=== PATIENT | female | born 1990 | race African-American/Black ===

== ENCOUNTER 2019-07-25 22:34 | Emergency (ER) | payer SELFPAY, OTHER ==
[2019-07-26 00:09] LABS: Absolute Lymphocytes (CBC) 2.4 K/uL (0.7-4.9); Basophils % 0.5 % (0-1.3); Hematocrit 36.5 % (36.0-45.0); Lymphocytes % 19.2 % (15.3-44.8); MPV 9.9 fL (7.6-11.3)
[2019-07-26 00:22] LABS: BUN Blood Urea Nitrogen 8 mg/dL (7-18); Bicarbonate 26 mmol/L (21-32); Glucose Level 97 mg/dL (74-106); Potassium 3.4 mmol/L (3.5-5.1); Sodium Level 143 mmol/L (136-145)
--- NOTE | 2019-07-26 00:28 | ER ---
Nurse's Notes [facility] Name: Bree Barton Age: 29 yrs Sex: Female : 1990 Arrival Date: 07/25/2019 Time: 22:35 Bed 19 Private MD: Diagnosis: Viral infection, unspecified;Shortness of breath Presentation: 07/24 22:41 Chief complaint: Patient states: Dizziness for 2 weeks. Slight cough with body aches ll1 for 2 weeks. Noticed SOB today. Feels hot at night, no known fever. Coronavirus screen: Surgical mask placed on patient. Patient moved to private room, placed in contact and droplet isolation with eye protection until further assessment. Patient reports a cough. Patient reports shortness of breath or difficulty breathing. Patient denies measured and/or subjective temperature greater than 100.4F prior to today's visit. Patient denies travel on a cruise ship or to a country the [facility] currently lists as an affected area. Patient denies contact with known and/or suspected case of COVID-19. Ebola Screen: Patient denies travel to an Ebola-affected area in the 21 days before illness onset. Initial Sepsis Screen: Does the patient meet any 2 criteria? No. Patient's initial sepsis screen is negative. Does the patient have a suspected source of infection? No. Patient's initial sepsis screen is negative. Risk Assessment: Do you want to hurt yourself or someone else? Patient reports no desire to harm self or others. Onset of symptoms was July 11, 2019. 22:41 Method Of Arrival: Ambulatory ll1 22:41 Acuity: TOMÁS 3 ll1 Historical: - Allergies: 22:43 No Known Allergies; ll1 - PMHx: 22:43 None; ll1 - PSHx: 22:43 None; ll1 - Immunization history:: Adult Immunizations unknown. - Social history:: Smoking status: Patient denies any tobacco usage or history of. Patient/guardian denies using alcohol, street drugs, tobacco products. Screenin/01 00:23 Abuse screen: Denies threats or abuse. Nutritional screening: No deficits noted. ea Tuberculosis screening: No symptoms or risk factors identified. Fall Risk None identified. Assessment: 07/24 23:41 General: Appears in no apparent distress. Behavior is appropriate for age. Pain: Denies ea pain. Neuro: Level of Consciousness is awake, alert, obeys commands, Oriented to person, place, time, situation. Cardiovascular: Patient's skin is warm and dry. Respiratory: Airway is patent Respiratory effort is even, unlabored, Respiratory pattern is regular, symmetrical. Derm: Skin is pink, warm \T\ dry. Musculoskeletal: Circulation, motion, and sensation intact. 07/25 00:46 Reassessment: Patient and/or family updated on plan of care and expected duration. Pain ea level reassessed. Patient is alert, oriented x 3, equal unlabored respirations, skin warm/dry/pink. Discharge instruction given to patient, verbalized the understanding of instruction. Vital Signs: 07/24 22:41 BP 160 / 89; Pulse 82; Resp 17; Temp 99.5; Pulse Ox 99% ; Pain 6/10; ll1 07/25 00:26 BP 147 / 63; Pulse 88; Resp 18; Pulse Ox 98% on R/A; ea ED Course: 07/24 22:35 Patient arrived in ED. cl3 22:43 Triage completed. ll1 22:43 Arm band placed on Patient placed in an exam room, on a stretcher. ll1 23:17 Delfino Newton MD is Attending Physician. kdr 23:24 Tori Weeks RN is Primary Nurse. ea 23:43 Inserted saline lock: 22 gauge in left antecubital area, using aseptic technique. Blood ea collected. 23:53 CXR XRAY In Process Unspecified. EDMS 07/25 00:23 Patient has correct armband on for positive identification. Bed in low position. Call ea light in reach. 00:40 IV discontinued, intact, bleeding controlled, No redness/swelling at site. Pressure ea dressing applied. Administered Medications: 00:45 Drug: Ibuprofen 600 mg Route: PO; ea 00:46 Follow up: Response: Medication administered at discharge. ea 00:45 Drug: Tessalon Perle 200 mg Route: PO; ea 00:45 Follow up: Response: Medication administered at discharge. ea Outcome: 00:28 Discharge ordered by . kdr 00:47 Discharged to home ambulatory. ea 00:47 Condition: stable 00:47 Discharge instructions given to patient, Instructed on discharge instructions, follow up and referral plans. medication usage, Demonstrated understanding of instructions, follow-up care, medications, Prescriptions given X 2. 00:48 Patient left the ED. ea Addendum: 07/27/2019 18:25 Addendum: Other pt notified via telephone of negative COVID result, pt states she never i w had respiratory symptoms, only that she had leg cramps, has been symptom free for 24 hours. Signatures: Dispatcher [employer] EDMS Delfino Newton MD MD kdr Williams, Irene, RN RN iw Tori Weeks RN RN ea Lewis, Charde cl3 Rudy Mcrae RN RN ll1 Corrections: (The following items were deleted from the chart) 18:28 18:25 Addendum: Other pt notified via telephone of negative COVID result, pt states she iw never had respiratory symptoms, she had leg cramps iw
--- NOTE | 2019-07-26 00:28 | EDPHYS ---
Physician Documentation [facility] Name: Bree Barton Age: 29 yrs Sex: Female : 1990 Arrival Date: 07/25/2019 Time: 22:35 Bed 19 Private MD: ED Physician Delfino Newton HPI: 07/24 23:26 This 29 yrs old Black Female presents to ER via Ambulatory with complaints of Shortness kdr Of Breath, Dizziness. 23:26 The patient has shortness of breath at rest, with light activity. Onset: The kdr symptoms/episode began/occurred gradually, 2 week(s) ago. Duration: The symptoms are continuous, and are unchanged since they started. The patient's shortness of breath is aggravated by exertion, is alleviated by nothing. Associated signs and symptoms: Pertinent positives: non-productive cough. Severity of symptoms: At their worst the symptoms were mild in the emergency department the symptoms are unchanged. The patient has not experienced similar symptoms in the past. The patient has not recently seen a physician. Historical: - Allergies: 22:43 No Known Allergies; ll1 - PMHx: 22:43 None; ll1 - PSHx: 22:43 None; ll1 - Immunization history:: Adult Immunizations unknown. - Social history:: Smoking status: Patient denies any tobacco usage or history of. Patient/guardian denies using alcohol, street drugs, tobacco products. ROS: 23:26 Constitutional: Negative for objective fever, chills, and weight loss, Eyes: Negative kdr for injury, pain, redness, and discharge, Neck: Negative for injury, pain, and swelling, Cardiovascular: Negative for chest pain, palpitations, and edema, Abdomen/GI: Negative for abdominal pain, nausea, vomiting, diarrhea, and constipation, Back: Negative for injury and pain, : Negative for injury, bleeding, discharge, and swelling, MS/Extremity: Negative for injury and deformity, Skin: Negative for injury, rash, and discoloration, Neuro: Negative for headache, weakness, numbness, tingling, and seizure activity. Psych: Negative for depression, anxiety, suicide ideation, homicidal ideation, and hallucinations, Allergy/Immunology: Negative for hives, rash, and allergies, Endocrine: Negative for neck swelling, polydipsia, polyuria, polyphagia, and marked weight changes, Hematologic/Lymphatic: Negative for swollen nodes, abnormal bleeding, and unusual bruising. 23:26 Respiratory: Positive for cough, with no reported sputum, shortness of breath, Negative for hemoptysis, orthopnea, sputum production, wheezing. Exam: 23:26 Constitutional: This is a well developed, well nourished patient who is awake, alert, kdr and in no acute distress. Head/Face: Normocephalic, atraumatic. Eyes: Pupils equal round and reactive to light, extra-ocular motions intact. Lids and lashes normal. Conjunctiva and sclera are non-icteric and not injected. Cornea within normal limits. Periorbital areas with no swelling, redness, or edema. Neck: Trachea midline, no thyromegaly or masses palpated, and no cervical lymphadenopathy. Supple, full range of motion without nuchal rigidity, or vertebral point tenderness. No Meningismus. Chest/axilla: Normal chest wall appearance and motion. Nontender with no deformity. No lesions are appreciated. Cardiovascular: Regular rate and rhythm with a normal S1 and S2. No gallops, murmurs, or rubs. Normal PMI, no JVD. No pulse deficits. Respiratory: Lungs have equal breath sounds bilaterally, clear to auscultation and percussion. No rales, rhonchi or wheezes noted. No increased work of breathing, no retractions or nasal flaring. Abdomen/GI: Soft, non-tender, with normal bowel sounds. No distension or tympany. No guarding or rebound. No evidence of tenderness throughout. Back: No spinal tenderness. No costovertebral tenderness. Full range of motion. Skin: Warm, dry with normal turgor. Normal color with no rashes, no lesions, and no evidence of cellulitis. MS/ Extremity: Pulses equal, no cyanosis. Neurovascular intact. Full, normal range of motion. Neuro: Awake and alert, GCS 15, oriented to person, place, time, and situation. Cranial nerves II-XII grossly intact. Motor strength 5/5 in all extremities. Sensory grossly intact. Cerebellar exam normal. Normal gait. Psych: Awake, alert, with orientation to person, place and time. Behavior, mood, and affect are within normal limits. Vital Signs: 22:41 BP 160 / 89; Pulse 82; Resp 17; Temp 99.5; Pulse Ox 99% ; Pain 6/10; ll1 07/25 00:26 BP 147 / 63; Pulse 88; Resp 18; Pulse Ox 98% on R/A; ea MDM: 00:28 Patient medically screened. kdr 03:54 Data reviewed: vital signs, nurses notes. Counseling: I had a detailed discussion with kdr the patient and/or guardian regarding: the historical points, exam findings, and any diagnostic results supporting the discharge/admit diagnosis, lab results, radiology results, the need for outpatient follow up. 07/24 23:26 Order name: CBC with Diff; Complete Time: 00:25 kdr 07/24 23:26 Order name: Chem 7; Complete Time: 00:25 kdr 07/24 23:26 Order name: COVID-19 kdr 07/24 23:26 Order name: CXR XRAY kdr Administered Medications: 00:45 Drug: Ibuprofen 600 mg Route: PO; ea 00:46 Follow up: Response: Medication administered at discharge. ea 00:45 Drug: Tessalon Perle 200 mg Route: PO; ea 00:45 Follow up: Response: Medication administered at discharge. ea Disposition: 07/26/19 00:28 Discharged to Home. Impression: Viral infection, unspecified, Shortness of breath. - Condition is Stable. - Discharge Instructions: Shortness of Breath, Gyvm-sj-Pxor, Cough, Adult, Opej-oa-Joeu, Viral Respiratory Infection, [id number], COVID-19. - Prescriptions for Ibuprofen 600 mg Oral Tablet - take 1 tablet by ORAL route every 6 hours As needed take with food; 30 tablet. Tessalon Perles 100 mg Oral Capsule - take 1 capsule by ORAL route every 8 hours As needed; 15 capsule. - Medication Reconciliation Form, Thank You Letter, Antibiotic Education, Prescription Opioid Use form. - Follow up: Private Physician; When: 2 - 3 days; Reason: If symptoms return, Further diagnostic work-up, Recheck today's complaints, Continuance of care, Re-evaluation by your physician. - Problem is an ongoing problem. - Symptoms are unchanged. Signatures: Dispatcher [employer] EDMS Delfino Newton MD MD kdr Antunez, Elena, RN RN ea Lewis, Lynsay, RN RN ll1 Corrections: (The following items were deleted from the chart) 00:48 00:28 07/26/2019 00:28 Discharged to Home. Impression: Viral infection, unspecified; ea Shortness of breath. Condition is Stable. Forms are Medication Reconciliation Form, Thank You Letter, Antibiotic Education, Prescription Opioid Use. Follow up: Private Physician; When: 2 - 3 days; Reason: If symptoms return, Further diagnostic work-up, Recheck today's complaints, Continuance of care, Re-evaluation by your physician. Problem is an ongoing problem. Symptoms are unchanged. kdr
[2019-07-26] MEDS ORDERED: IBUPROFEN 200 MG TAB PO ONE (00:39)
[2019-07-26] MEDS ORDERED: BENZONATATE 100 MG CAP PO ONE (00:39)
[2019-07-26] MEDS ORDERED: IBUPROFEN 400 MG TAB ONE (00:40)
[2019-07-26 01:07] VITALS: TEMP 99.5
[2019-07-26 01:08] VITALS: BP 147/63; O2SAT 98
--- NOTE | 2019-07-26 07:22 | RAD REPORT ---
EXAM DESCRIPTION: RAD - Chest Single View - 07/25/2019 11:52 pm CLINICAL HISTORY: COUGH, weakness, body ache COMPARISON: Portable July 2007 TECHNIQUE: AP portable chest image was obtained 07/25/2019 11:52 pm . FINDINGS: Lungs are clear. Heart and vasculature are normal. No measurable pleural effusion and no p neumothorax. No acute bony abnormality seen. No acute aortic findings suspected. IMPRESSION: No acute cardiopulmonary process. No significant changes since the prior study.
== END 2019-07-26 00:48 | disposition home or self-care (01) ==
LOC: ER 22:34
DX: B34.9 Viral infection, unspecified (principal); Z20.828 Contact with and (suspected) exposure to other viral communicable diseases
CPT/HCPCS: 36415; 71045; 80048; 85025; 99284; U0001

== ENCOUNTER 2020-04-17 07:38 | Emergency (ER) | payer SELFPAY ==
--- OUTSIDE RECORDS SUMMARY | 2020-04-17 07:40 | XMS REPORT | Continuity of Care Document ---
:1990 Author Organization [facility] t Address 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 Medications Ordered Filled Start Stop Current Ordering Indication Dosage Frequency Signature Comments Components Source Medication Medication Date Date Medication? Clinician (SIG) Name Name Zamzam Wyman 2018-0 Yes Carlos Take 1/[address] [facility] 5-01 Lu tab QD x 1 [facility] - 00:00: week then [facility] 00 take 1 tab l [facility]D Outpati ent Clinics Procedures This patient has no known procedures. Encounters Start End Encounter Admission Attending Care Care Encounter Source Date/Time Date/Time Type Type Clinicians Facility Department ID 2018-07-31 2018-07-31 Outpatient Elliot Zaratet [id number] [facility] 11:29:00 11:29:00 [facility] Medicine Outpat[facility] Clinics 2018-07-25 2018-07-25 Outpatient Elliot [place] [id number] [facility] 09:00:00 09:00:00 [facility] Medicine Out[facility] Clinics Results This patient has no known results.
[2020-04-17] MEDS ORDERED: MECLIZINE HCL 12.5 MG TAB ONE (08:13)
[2020-04-17] MEDS ORDERED: IBUPROFEN 400 MG TAB ONE (08:14)
[2020-04-17] MEDS ORDERED: IBUPROFEN 200 MG TAB PO ONE (08:14)
--- NOTE | 2020-04-17 08:32 | RAD REPORT ---
EXAM DESCRIPTION: CT - Head Brain Wo Cont - 04/17/2020 8:08 am CLINICAL HISTORY: DIZZINESS Headache, drowsiness COMPARISON: No comparisons TECHNIQUE: All CT scans are performed using dose optimization technique as appropriate and may inclu de automated exposure control or mA/KV adjustment according to patient size. FINDINGS: No intracranial hemorrhage, hydrocephalus or extra-axial fluid collection.No areas of brai n edema or evidence of midline shift. The paranasal sinuses and mastoids are clear. The calvarium is intact. IMPRESSION: No acute intracranial abnormality.
--- NOTE | 2020-04-17 08:58 | ER ---
Nurse's Notes [facility] Name: Bree Barton Age: 30 yrs Sex: Female : 1990 Arrival Date: 04/17/2020 Time: 07:39 Bed 7 Private MD: Diagnosis: Dizziness and giddiness Presentation: 04/17 07:47 Chief complaint: Patient states: dizziness and inability to take a deep breath started sv yesterday morning. Pt also reported a headache that started yesterday afternoon as well but is gone at this time. Coronavirus screen: Client denies travel out of the [place] in the last 14 days. At this time, the client does not indicate any symptoms associated with coronavirus-19. Ebola Screen: No symptoms or risks identified at this time. Risk Assessment: Do you want to hurt yourself or someone else? Patient reports no desire to harm self or others. Onset of symptoms was April 16, 2020. 07:47 Method Of Arrival: Wheelchair sv 07:47 Acuity: TOMÁS 3 sv Historical: - Allergies: 07:50 No Known Allergies; sv - PMHx: 07:50 Hypertension; sv - PSHx: 07:50 None; sv - Immunization history:: Adult Immunizations up to date. - Social history:: Smoking status: Patient denies any tobacco usage or history of. Patient uses alcohol, but reports only rare drinking. Screenin:50 Abuse screen: Denies threats or abuse. Nutritional screening: No deficits noted. tw2 Tuberculosis screening: No symptoms or risk factors identified. Fall Risk None identified. Assessment: 07:56 Reassessment: provider at bedside. tw2 08:00 General: Appears in no apparent distress. obese, well groomed, Behavior is calm, tw2 cooperative, appropriate for age. Pain: Complains of pain in face. Neuro: Reports dizziness. Cardiovascular: Patient's skin is warm and dry. Respiratory: Airway is patent Respiratory effort is even, unlabored, Respiratory pattern is regular, symmetrical. GI: No signs and/or symptoms were reported involving the gastrointestinal system. Abdomen is round non-distended, obese. : No signs and/or symptoms were reported regarding the genitourinary system. EENT: No signs and/or symptoms were reported regarding the EENT system. Derm: No signs and/or symptoms reported regarding the dermatologic system. Musculoskeletal: Circulation, motion, and sensation intact. Range of motion: intact in all extremities. 09:03 Reassessment: Patient appears in no apparent distress at this time. No changes from tw2 previously documented assessment. Patient and/or family updated on plan of care and expected duration. Pain level reassessed. Patient is alert, oriented x 3, equal unlabored respirations, skin warm/dry/pink. Vital Signs: 07:47 Weight 112.49 kg; Height 5 ft. 8 in. (172.72 cm); Pain 0/10; sv 07:49 BP 126 / 49; Pulse 78; Resp 18; Pulse Ox 96% on R/A; tw2 08:13 Temp 97.9(TE); tw2 09:02 BP 138 / 78; Pulse 65; Resp 17; Pulse Ox 97% on R/A; tw2 07:47 Body Mass Index 37.71 (112.49 kg, 172.72 cm) sv ED Course: 07:39 Patient arrived in ED. as 07:42 Yoel Daniels MD is Attending Physician. tw4 07:42 Bed in low position. Call light in reach. Pulse ox on. NIBP on. tw2 07:49 Darling Taylor RN is Primary Nurse. tw2 07:50 Triage completed. sv 07:50 Arm band placed on. sv 08:07 CT completed. Patient tolerated procedure well. Patient moved to CT via wheelchair. Patient moved back from CT. 09:03 No provider procedures requiring assistance completed. Patient did not have IV access tw2 during this emergency room visit. Administered Medications: 08:02 Drug: Meclizine 25 mg Route: PO; tw2 09:04 Follow up: Response: No adverse reaction tw2 08:03 Drug: Motrin 800 mg Route: PO; tw2 09:04 Follow up: Response: No adverse reaction tw2 Outcome: 08:57 Discharge ordered by . tw4 09:03 Discharged to home ambulatory. tw2 09:03 Condition: stable 09:03 Discharge instructions given to patient, Instructed on discharge instructions, follow up and referral plans. no drinking with medication, no driving heavy equipment, medication usage, Demonstrated understanding of instructions, follow-up care, medications, Prescriptions given X 2. 09:04 Patient left the ED. tw2 Signatures: Yennifer Sharma RN RN sv Onofre, Julissa Brian Tara, RN RN tw2 Yoel Daniels MD MD tw4
--- NOTE | 2020-04-17 08:58 | EDPHYS ---
Physician Documentation [facility] Name: Bree Barton Age: 30 yrs Sex: Female : 1990 Arrival Date: 04/17/2020 Time: 07:39 Bed 7 Private MD: ED Physician Yoel Daniels HPI: 04/17 08:27 This 30 yrs old Black Female presents to ER via Wheelchair with complaints of Dizziness.tw4 08:27 The patient presents with dizziness, lightheadedness. Onset: The symptoms/episode tw4 began/occurred today. Context: occurred at home, occurred while the patient was just prior to the episode the patient experienced no apparent symptoms. Modifying factors: The symptoms are alleviated by nothing, the symptoms are aggravated by nothing. Severity of symptoms: At their worst the symptoms were moderate in the emergency department the symptoms are unchanged. The patient has not experienced similar symptoms in the past. Historical: - Allergies: 07:50 No Known Allergies; sv - PMHx: 07:50 Hypertension; sv - PSHx: 07:50 None; sv - Immunization history:: Adult Immunizations up to date. - Social history:: Smoking status: Patient denies any tobacco usage or history of. Patient uses alcohol, but reports only rare drinking. ROS: 08:27 Constitutional: Negative for fever, chills, and weight loss, Eyes: Negative for injury, tw4 pain, redness, and discharge, Cardiovascular: Negative for chest pain, palpitations, and edema, Respiratory: Negative for shortness of breath, cough, wheezing, and pleuritic chest pain, Abdomen/GI: Negative for abdominal pain, nausea, vomiting, diarrhea, and constipation, Back: Negative for injury and pain, MS/Extremity: Negative for injury and deformity, Skin: Negative for injury, rash, and discoloration, Neuro: Negative for headache, weakness, numbness, tingling, and seizure. Exam: 08:28 Constitutional: This is a well developed, well nourished patient who is awake, alert, tw4 and in no acute distress. Head/Face: Normocephalic, atraumatic. Neck: Trachea midline, no thyromegaly or masses palpated, and no cervical lymphadenopathy. Supple, full range of motion without nuchal rigidity, or vertebral point tenderness. No Meningismus. Chest/axilla: Normal chest wall appearance and motion. Nontender with no deformity. No lesions are appreciated. Cardiovascular: Regular rate and rhythm with a normal S1 and S2. No gallops, murmurs, or rubs. Normal PMI, no JVD. No pulse deficits. Respiratory: Lungs have equal breath sounds bilaterally, clear to auscultation and percussion. No rales, rhonchi or wheezes noted. No increased work of breathing, no retractions or nasal flaring. Abdomen/GI: Soft, non-tender, with normal bowel sounds. No distension or tympany. No guarding or rebound. No evidence of tenderness throughout. Back: No spinal tenderness. No costovertebral tenderness. Full range of motion. Skin: Warm, dry with normal turgor. Normal color with no rashes, no lesions, and no evidence of cellulitis. MS/ Extremity: Pulses equal, no cyanosis. Neurovascular intact. Full, normal range of motion. Neuro: Awake and alert, GCS 15, oriented to person, place, time, and situation. Cranial nerves II-XII grossly intact. Motor strength 5/5 in all extremities. Sensory grossly intact. Cerebellar exam normal. Normal gait. Vital Signs: 07:47 Weight 112.49 kg; Height 5 ft. 8 in. (172.72 cm); Pain 0/10; sv 07:49 BP 126 / 49; Pulse 78; Resp 18; Pulse Ox 96% on R/A; tw2 08:13 Temp 97.9(TE); tw2 09:02 BP 138 / 78; Pulse 65; Resp 17; Pulse Ox 97% on R/A; tw2 07:47 Body Mass Index 37.71 (112.49 kg, 172.72 cm) sv MDM: 07:42 Patient medically screened. 04/17 07:57 Order name: CT Head Brain wo Cont 04/17 08:42 Order name: CT EDMS Administered Medications: 08:02 Drug: Meclizine 25 mg Route: PO; 09:04 Follow up: Response: No adverse reaction 2 08:03 Drug: Motrin 800 mg Route: PO; tw 09:04 Follow up: Response: No adverse reaction tw2 Disposition: 04/17/20 08:57 Discharged to Home. Impression: Dizziness and giddiness. - Condition is Stable. - Discharge Instructions: Dizziness. - Prescriptions for Meclizine 25 mg Oral Tablet - take 1 tablet by ORAL route every 8 hours As needed; 30 tablet. Fiorinal 50- 325-40 mg Oral Capsule - take 1 capsule by ORAL route every 4 hours As needed - not to exceed 6 capsules per day; 20 capsule. - Work release form, Medication Reconciliation Form, Thank You Letter, Antibiotic Education, Prescription Opioid Use form. - Follow up: Private Physician; When: Upon discharge from the Emergency Department; Reason: Recheck today's complaints, Continuance of care, Re-evaluation by your physician. - Problem is new. - Symptoms have improved. Signatures: Dispatcher [employer] EDYennifer Khalil RN RN sv Darling Taylor RN RN tw2 Yoel Daniels MD MD tw4 Corrections: (The following items were deleted from the chart) 09:04 08:57 04/17/2020 08:57 Discharged to Home. Impression: Dizziness and giddiness. tw2 Condition is Stable. Forms are Work release form, Medication Reconciliation Form, Thank You Letter, Antibiotic Education, Prescription Opioid Use. Follow up: Private Physician; When: Upon discharge from the Emergency Department; Reason: Recheck today's complaints, Continuance of care, Re-evaluation by your physician. Problem is new. Symptoms have improved. tw4
[2020-04-17 09:11] VITALS: TEMP 97.9
[2020-04-17 09:13] VITALS: BP 138/78; O2SAT 97
== END 2020-04-17 09:04 | disposition home or self-care (01) ==
LOC: ER 07:38
DX: R42 Dizziness and giddiness (principal); I10 Essential (primary) hypertension
CPT/HCPCS: 70450; 99284

== ENCOUNTER 2020-05-19 17:57 | Emergency (ER) | payer SELFPAY ==
--- OUTSIDE RECORDS SUMMARY | 2020-05-19 18:00 | XMS REPORT | Continuity of Care Document ---
:1990 Author Organization [facility] t Address [address] [place] [address] Care Team Providers Name Role Phone Unavailable [...] ID 2018-07-31 2018-07-31 Outpatient Elliot Zaratet [id number] [facility] 11:29:00 11:29:[address] [facility] l Medicine Outpati ent Clinics 2018-07-25 2018-07-25 Outpatient Elliot [place] [id number] [facility] 09:00:00 09:00:[address] [facility] l Medicine Outpati ent Clinics Results This patient has no known results.
[2020-05-19 20:27] LABS: Absolute Lymphocytes (CBC) 2.8 K/uL (0.7-4.9); Basophils % 0.6 % (0-1.3); Hematocrit 38.4 % (36.0-45.0); Lymphocytes % 18.9 % (15.3-44.8); MPV 9.6 fL (7.6-11.3); RBC Red Blood Cell Count 5.31 M/uL (3.86-4.86)
[2020-05-19 20:28] LABS: Protime INR 0.97
[2020-05-19 20:46] LABS: ALT/SGPT 25 U/L (12-78); AST/SGOT 16 U/L (15-37); Albumin 3.9 g/dL (3.4-5.0); Alkaline Phosphatase 97 U/L (45-117); BUN Blood Urea Nitrogen 6 mg/dL (7-18); Bicarbonate 27 mmol/L (21-32); Bilirubin Direct 0.1 mg/dL (0-0.2); Bilirubin Total 0.6 mg/dL (0.2-1.0); Glucose Level 86 mg/dL (74-106); Magnesium 2.5 mg/dL (1.8-2.4); NT PRO-BNP 91 pg/mL (<125); Potassium 3.3 mmol/L (3.5-5.1); Protein, Total 8.6 g/dL (6.4-8.2); Sodium Level 141 mmol/L (136-145); Troponin (Emerg Dept Use Only) < 0.02 ng/mL (0.0-0.045)
[2020-05-19 20:48] LABS: Urine Blood NEGATIVE (NEG); Urine Glucose NEGATIVE (NEG); Urine Protein NEGATIVE (NEG); Urine Specific Gravity 1.025 (1.005-1.030); Urine pH 6.5 (5.0-7.0)
[2020-05-19 20:59] LABS: Barbiturates POSITIVE (NEGATIVE); Benzodiazepines NEGATIVE (NEGATIVE); Cocaine NEGATIVE (NEGATIVE); METHAMPHETAM NEGATIVE (NEGATIVE); Methadone NEGATIVE (NEGATIVE); Opiates NEGATIVE (NEGATIVE); Phencyclidine NEGATIVE (NEGATIVE); THC Cannibis NEGATIVE (NEGATIVE)
--- NOTE | 2020-05-19 21:00 | RAD REPORT ---
EXAM DESCRIPTION: RAD - Chest Single View - 05/19/2020 8:22 pm CLINICAL HISTORY: CHEST PAIN COMPARISON: Portable June 2019 TECHNIQUE: AP portable chest image was obtained 05/19/2020 8:22 pm . FINDINGS: Lungs are clear. Heart and vasculature are normal. No measurable pleural effusion and no p neumothorax. No acute bony abnormality seen. No acute aortic findings suspected. IMPRESSION: No acute cardiopulmonary process. No significant change from comparison study.
--- NOTE | 2020-05-19 23:11 | ER ---
Nurse's Notes [facility] Name: Bree Barton Age: 30 yrs Sex: Female : 1990 Arrival Date: 05/19/2020 Time: 17:58 Bed 17 Private MD: Diagnosis: Other chest pain Presentation: 05/19 18:06 Chief complaint: Patient states: CP off/on for 2 weeks. No fever or cough. Dizzy at ll1 times. Pain radiates into both arms and back at times. Coronavirus screen: Client denies travel out of the [place] in the last 14 days. At this time, the client does not indicate any symptoms associated with coronavirus-19. Ebola Screen: Patient denies travel to an Ebola-affected area in the 21 days before illness onset. Initial Sepsis Screen: Does the patient meet any 2 criteria? No. Patient's initial sepsis screen is negative. Does the patient have a suspected source of infection? No. Patient's initial sepsis screen is negative. Risk Assessment: Do you want to hurt yourself or someone else? Patient reports no desire to harm self or others. Onset of symptoms was May 05, 2020. 18:06 Method Of Arrival: Ambulatory ll1 18:06 Acuity: TOMÁS 3 ll1 Historical: - Allergies: 18:06 No Known Allergies; ll1 - PMHx: 18:06 Hypertension; ll1 - PSHx: 18:06 None; ll1 - Immunization history:: Flu vaccine is not up to date. - Social history:: Smoking status: Patient denies any tobacco usage or history of. Screenin:12 Abuse screen: Denies threats or abuse. Nutritional screening: No deficits noted. vg1 Tuberculosis screening: No symptoms or risk factors identified. Fall Risk None identified. Assessment: 19:10 General: Appears in no apparent distress. comfortable, Behavior is calm, cooperative. vg1 Pain: Denies pain. Complains of pain in chest Pain radiates to back Pain currently is 0 out of 10 on a pain scale. at worst was 10 out of 10 on a pain scale. Quality of pain is described as sharp. Neuro: Level of Consciousness is awake, alert, obeys commands, Oriented to person, place, time, situation. Neuro: Reports dizziness. Cardiovascular: Heart tones S1 S2. Respiratory: Airway is patent Respiratory effort is even, unlabored, Breath sounds are clear bilaterally. GI: Patient currently denies diarrhea, nausea, vomiting. : No signs and/or symptoms were reported regarding the genitourinary system. EENT: No signs and/or symptoms were reported regarding the EENT system. Derm: Skin is intact, is healthy with good turgor. Musculoskeletal: Circulation, motion, and sensation intact. 22:34 Reassessment: Patient appears in no apparent distress at this time. No changes from vg1 previously documented assessment. Patient and/or family updated on plan of care and expected duration. Pain level reassessed. Patient is alert, oriented x 3, equal unlabored respirations, skin warm/dry/pink. Patient denies pain at this time. 23:24 Reassessment: Patient appears in no apparent distress at this time. No changes from vg1 previously documented assessment. Vital Signs: 18:06 BP 148 / 80; Pulse 65; Resp 16; Temp 98.3; Pulse Ox 99% ; Weight 108.86 kg; Height 5 ll1 ft. 8 in. (172.72 cm); Pain 10/10; 19:12 BP 140 / 71; Pulse 75; Resp 16; Pulse Ox 100% on R/A; vg1 20:00 BP 138 / 66; Pulse 64; Resp 22; Pulse Ox 100% on R/A; vg1 21:00 BP 123 / 54; Pulse 65; Resp 16; Pulse Ox 100% on R/A; vg1 22:00 BP 123 / 62; Pulse 60; Resp 22; Pulse Ox 100% on R/A; vg1 23:00 BP 126 / 65; Pulse 60; Resp 18; Pulse Ox 100% on R/A; vg1 18:06 Body Mass Index 36.49 (108.86 kg, 172.72 cm) ll1 ED Course: 17:00 EKG done, by ED staff, reviewed by Artis Pyle MD Flu and/or RSV swab sent to lab. jp3 17:58 Patient arrived in ED. as 18:06 Arm band placed on Patient placed in an exam room, on a stretcher. ll1 18:08 Triage completed. ll1 19:02 Blanca Harrison, RN is Primary Nurse. vg1 19:12 Patient has correct armband on for positive identification. Placed in gown. Bed in low vg1 position. Call light in reach. Side rails up X 1. 19:23 Yoel Daniels MD is Attending Physician. tw4 19:30 Verbal reassurance given. r&d lab technician on. Pulse ox on. NIBP on. jp3 19:39 Primary Nurse role handed off by Blanca Harrison, RN mw2 20:01 Blanca Harrison RN is Primary Nurse. vg1 20:10 Urine collected: clean catch specimen, clear, jaylen colored. jp3 20:15 Initial lab(s) drawn, by me, sent to lab. Inserted saline lock: 20 gauge in right jp3 wrist, using aseptic technique. Blood collected. 20:20 EKG done, reviewed by Yoel Daniels MD. Patient maintains SpO2 saturation greater jp3 than 95% on room air. 20:22 XRAY Chest (1 view) In Process Unspecified. EDMS 23:25 No provider procedures requiring assistance completed. IV discontinued, intact, vg1 bleeding controlled, No redness/swelling at site. Pressure dressing applied. Administered Medications: No medications were administered Outcome: 23:10 Discharge ordered by . tw4 23:25 Discharged to home ambulatory. vg1 23:25 Condition: stable 23:25 Discharge instructions given to patient, Instructed on discharge instructions, follow up and referral plans. medication usage, Demonstrated understanding of instructions, follow-up care, medications, Prescriptions given X 1. 23:30 Patient left the ED. vg1 Signatures: Dispatcher [employer] EDMS Julissa Yip as Yoel Daniels MD MD tw4 Jacey Ramirez mw2 Shine Denis jp3 Blanca Harrison, JEFFREY RN vg1 Rudy Mcrae RN RN 1
--- NOTE | 2020-05-19 23:11 | EDPHYS ---
Physician Documentation [facility] Name: Bree Barton Age: 30 yrs Sex: Female : 1990 Arrival Date: 05/19/2020 Time: 17:58 Bed 17 Private MD: ED Physician Yoel Daniels HPI: 05/20 07:43 This 30 yrs old Black Female presents to ER via Ambulatory with complaints of Chest tw4 Pain, Back Pain, Arm Pain. 07:43 The patient or guardian reports chest pain that is located primarily in the anterior tw4 chest wall, left. The pain does not radiate. Associated signs and symptoms: The patient has no apparent associated signs or symptoms. The chest pain is described as aching. Duration: The patient or guardian reports a single episode. Modifying factors: The symptoms are alleviated by nothing. the symptoms are aggravated by nothing. Severity of pain: At its worst the pain was moderate in the emergency department the pain is unchanged. Historical: - Allergies: 05/19 18:06 No Known Allergies; ll1 - PMHx: 18:06 Hypertension; ll1 - PSHx: 18:06 None; ll1 - Immunization history:: Flu vaccine is not up to date. - Social history:: Smoking status: Patient denies any tobacco usage or history of. ROS: 05/20 07:43 Constitutional: Negative for fever, chills, and weight loss, Eyes: Negative for injury, tw4 pain, redness, and discharge, Respiratory: Negative for shortness of breath, cough, wheezing, and pleuritic chest pain, Abdomen/GI: Negative for abdominal pain, nausea, vomiting, diarrhea, and constipation, Back: Negative for injury and pain, MS/Extremity: Negative for injury and deformity, Skin: Negative for injury, rash, and discoloration. Cardiovascular: Positive for chest pain. Exam: 07:43 Constitutional: This is a well developed, well nourished patient who is awake, alert, tw4 and in no acute distress. Head/Face: Normocephalic, atraumatic. Chest/axilla: Normal chest wall appearance and motion. Nontender with no deformity. No lesions are appreciated. Cardiovascular: Regular rate and rhythm with a normal S1 and S2. No gallops, murmurs, or rubs. Normal PMI, no JVD. No pulse deficits. Respiratory: Lungs have equal breath sounds bilaterally, clear to auscultation and percussion. No rales, rhonchi or wheezes noted. No increased work of breathing, no retractions or nasal flaring. Abdomen/GI: Soft, non-tender, with normal bowel sounds. No distension or tympany. No guarding or rebound. No evidence of tenderness throughout. Back: No spinal tenderness. No costovertebral tenderness. Full range of motion. Skin: Warm, dry with normal turgor. Normal color with no rashes, no lesions, and no evidence of cellulitis. MS/ Extremity: Pulses equal, no cyanosis. Neurovascular intact. Full, normal range of motion. Neuro: Awake and alert, GCS 15, oriented to person, place, time, and situation. Cranial nerves II-XII grossly intact. Motor strength 5/5 in all extremities. Sensory grossly intact. Cerebellar exam normal. Normal gait. Vital Signs: 05/19 18:06 BP 148 / 80; Pulse 65; Resp 16; Temp 98.3; Pulse Ox 99% ; Weight 108.86 kg; Height 5 ll1 ft. 8 in. (172.72 cm); Pain 10/10; 19:12 BP 140 / 71; Pulse 75; Resp 16; Pulse Ox 100% on R/A; vg1 20:00 BP 138 / 66; Pulse 64; Resp 22; Pulse Ox 100% on R/A; vg1 21:00 BP 123 / 54; Pulse 65; Resp 16; Pulse Ox 100% on R/A; vg1 22:00 BP 123 / 62; Pulse 60; Resp 22; Pulse Ox 100% on R/A; vg1 23:00 BP 126 / 65; Pulse 60; Resp 18; Pulse Ox 100% on R/A; vg1 18:06 Body Mass Index 36.49 (108.86 kg, 172.72 cm) ll1 MDM: 20:06 Patient medically screened. tw4 05/20 07:44 Data reviewed: vital signs, nurses notes. Data interpreted: Pulse oximetry: tw4 Interpretation: normal. Counseling: I had a detailed discussion with the patient and/or guardian regarding: the historical points, exam findings, and any diagnostic results supporting the discharge/admit diagnosis. Special discussion: I discussed with the patient/guardian in detail that at this point there is no indication for admission to the hospital. It is understood, however, that if the symptoms persist or worsen the patient needs to return immediately for re-evaluation. 05/19 19:59 Order name: Basic Metabolic Panel [facility] 05/19 19:59 Order name: CBC with Diff [facility] 05/19 19:59 Order name: LFT's [facility] 05/19 19:59 Order name: Magnesium [facility] 05/19 19:59 Order name: NT PRO-BNP; Complete Time: 23:02 [facility] 05/19 23:02 Interpretation: Within normal limits: NT PRO-BNP 91. [facility] 05/19 19:59 Order name: PT-INR; Complete Time: 23:03 [facility] 05/19 23:03 Interpretation: Within normal limits: PT 11.2. [facility] 05/19 19:59 Order name: Troponin (emerg Dept Use Only); Complete Time: 23:03 [facility] 05/19 23:03 Interpretation: Within normal limits: TROPED < 0.02. [facility] 05/19 19:59 Order name: XRAY Chest (1 view); Complete Time: 23:03 [facility] 05/19 23:04 Interpretation: No acute disease. 05/19 19:59 Order name: EKG; Complete Time: 19:59 [facility] 05/19 19:59 Order name: Cardiac monitoring; Complete Time: 20:02 [facility] 05/19 20:25 Order name: Urine Drug Screen [facility] 05/19 20:25 Order name: Urine Drug Screen; Complete Time: 23:02 [facility] 05/19 23:02 Interpretation: Normal except: DARIO POSITIVE. 05/19 20:42 Order name: Urine Dipstick--Ancillary (enter results) [facility] 05/19 20:42 Order name: Urine --Ancillary (enter results); Complete Time: 23:04 [facility] 05/19 23:04 Interpretation: Within normal limits: URINE PREG NEG; USPGR 1.025. [facility] 05/19 19:59 Order name: EKG - Nurse/Tech; Complete Time: 20:02 [facility] 05/19 19:59 Order name: IV Saline Lock; Complete Time: 20:21 [facility] 05/19 19:59 Order name: Labs collected and sent; Complete Time: 20:21 [facility] 05/19 19:59 Order name: O2 Per Protocol; Complete Time: 20:01 tw4 05/19 19:59 Order name: O2 Sat Monitoring; Complete Time: :4 EC:43 Rhythm is regular. QRS Mcdonald is Normal. MO interval is normal. QRS interval is normal. tw4 QT interval is normal. No Q waves. T waves are Normal. No ST changes noted. Clinical impression: Normal ECG. Interpreted by me. Reviewed by me. Administered Medications: No medications were administered Disposition: 05/19/20 23:10 Discharged to Home. Impression: Other chest pain. - Condition is Stable. - Discharge Instructions: Nonspecific Chest Pain, Pain Without a Known Cause. - Prescriptions for Ibuprofen 800 mg Oral Tablet - take 1 tablet by ORAL route every 12 hours As needed take with food; 20 tablet. - Medication Reconciliation Form, Thank You Letter, Antibiotic Education, Prescription Opioid Use form. - Follow up: Private Physician; When: Upon discharge from the Emergency Department; Reason: Recheck today's complaints, Continuance of care, Re-evaluation by your physician. - Problem is new. - Symptoms have improved. Signatures: Dispatcher [employer] EDMS Yoel Daniels MD MD tw4 Blanca Harrison RN RN vg1 Rudy Mcrae RN RN ll1 Corrections: (The following items were deleted from the chart) 05/19 23:30 23:10 05/19/2020 23:10 Discharged to Home. Impression: Other chest pain. Condition is vg1 Stable. Forms are Medication Reconciliation Form, Thank You Letter, Antibiotic Education, Prescription Opioid Use. Follow up: Private Physician; When: Upon discharge from the Emergency Department; Reason: Recheck today's complaints, Continuance of care, Re-evaluation by your physician. Problem is new. Symptoms have improved. tw4
[2020-05-19 23:52] VITALS: TEMP 98.3
[2020-05-19 23:53] VITALS: O2SAT 100
[2020-05-19 23:58] VITALS: BP 126/65
--- NOTE | 2020-05-21 05:40 | EKG ---
Test Date: 2020-05-19 Test Time: 18:13:08 Economic Development Manager: CECILE MEASUREMENT RESULTS: Intervals: Rate: 68 MI: 156 QRSD: 78 QT: 420 QTc: 446 [place]: P: -26 MI: 156 QRS: 18 T: -14 INTERPRETIVE STATEMENTS: Normal sinus rhythm with sinus arrhythmia Cannot rule out Anterior infarct, age undetermined T wave abnormality, consider inferior ischemia Abnormal ECG Compared to ECG 08/01/2007 08:43:05 Myocardial infarct finding now present T-wave abnormality now present Possible ischemia now present Left ventricular hypertrophy no longer present Electronically Signed On 05-21-20 05:35:57 PHLEBOTOMY SUPERVISOR by Sorin Ventura
== END 2020-05-19 23:30 | disposition home or self-care (01) ==
LOC: ER 17:57
DX: R07.89 Other chest pain (principal); I10 Essential (primary) hypertension
CPT/HCPCS: 36415; 71045; 80048; 80076; 80307; 81003; 81025; 83735; 83880; 84484; 85025; 85610; 93005; 99285

== ENCOUNTER 2020-11-22 13:22 | Emergency (ER) | payer OTHER, SELFPAY ==
--- OUTSIDE RECORDS SUMMARY | 2020-11-22 13:24 | XMS REPORT | Continuity of Care Document ---
:1990 Author Organization [facility] t Address [address] [place] [address] Care Team Providers Name Role Phone Unavailable [...] ID 2018-07-31 2018-07-31 Outpatient Elliot Zaratet [id number] [facility] 11:29:00 11:29:00 [facility] Family [facility] l Medicine Outpati ent Clinics 2018-07-25 2018-07-25 Outpatient Elliot [place] [id number] [facility] 09:00:00 09:00:00 [facility] Family Medicine l Medicine Outpati ent Clinics Results This patient has no known results.
[2020-11-22 14:13] LABS: Urine Blood Negative (Negative); Urine Glucose Negative (Negative); Urine Protein Negative (Negative); Urine Specific Gravity 1.025 (1.005-1.030); Urine pH 5.5 (5.0-7.0)
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
[2020-11-22 15:48] VITALS: BP 132/77; TEMP 98.7; O2SAT 100
[2020-11-22 15:56] LABS: Urine Specific Gravity/Preg 1.025 (1.005-1.030)
== END 2020-11-22 15:39 | disposition home or self-care (01) ==
LOC: ER 13:22
DX: M54.2 Cervicalgia (principal); V49.50XA Passenger injured in collision with unspecified motor vehicles in traffic accident, initial encounter; I10 Essential (primary) hypertension
CPT/HCPCS: 70450; 71250; 72125; 81003; 81025; 99283